=== PATIENT | male | born 1945 ===

== ENCOUNTER 2022-03-16 06:21 | Day surgery (SDC) | payer OTHER ==
[~2022-03-16] VITALS: Ht 172.7 cm; Wt 98.1 kg
[2022-03-16] MEDS ORDERED: ASPIR 8181 M1 (06:44)
[2022-03-16] MEDS ORDERED: LEVSOD75 (06:45)
[2022-03-16] MEDS ORDERED: ROSU5 (06:45)
[2022-03-16] MEDS ORDERED: LOSA50 (06:45)
[2022-03-16] MEDS ORDERED: METF500 (06:45)
--- NOTE | 2022-03-16 06:49 | NUR ---
03/16/22 0649 Concha Bah TETRACAINE TO RIGHT EYE @ 0638 PLEDGET TO RIGHT EYE 0640 BY [facility].MES
== END 2022-03-16 08:30 | disposition home or self-care (01) ==
LOC: ORSCSDS 06:21
PROVIDERS: Ophthalmology
PROC: 08RJ3JZ Replacement of Right Lens with Synthetic Substitute, Percutaneous Approach (ICD-10-PCS; principal; 2022-03-16 07:30)
DX: H25.11 Age-related nuclear cataract, right eye (principal); E11.36 Type 2 diabetes mellitus with diabetic cataract; E03.9 Hypothyroidism, unspecified; I10 Essential (primary) hypertension; E66.9 Obesity, unspecified; Z68.33 Body mass index [BMI] 33.0-33.9, adult; Z79.84 Long term (current) use of oral hypoglycemic drugs; Z79.899 Other long term (current) drug therapy
CPT/HCPCS: 82947; J2001; J2250; J3010; J3301; J7040; V2632

== ENCOUNTER 2022-04-06 07:35 | Day surgery (SDC) | payer OTHER ==
[~2022-04-06] VITALS: Ht 172.7 cm; Wt 100.8 kg
[~2022-04-06 07:35] MED LIST: ASPIR 8181 M1; LEVSOD75; LOSA50; METF500; ROSU5
--- NOTE | 2022-04-06 07:59 | NUR ---
04/06/22 0759 KYLEE GARCIA TETRACAINE 0750 PLEDGIT 0750
== END 2022-04-06 09:19 | disposition home or self-care (01) ==
LOC: ORSCSDS 07:35
PROVIDERS: Ophthalmology
PROC: 08RK3JZ Replacement of Left Lens with Synthetic Substitute, Percutaneous Approach (ICD-10-PCS; principal; 2022-04-06 08:30)
DX: H25.12 Age-related nuclear cataract, left eye (principal); E11.9 Type 2 diabetes mellitus without complications; E03.9 Hypothyroidism, unspecified; I10 Essential (primary) hypertension; Z79.84 Long term (current) use of oral hypoglycemic drugs; Z79.899 Other long term (current) drug therapy
CPT/HCPCS: 82947; J2001; J2250; J3010; J3301; J7040; V2632